=== PATIENT | female | born 1990 | race Caucasian/White ===

== ENCOUNTER 2016-04-23 14:30 | Emergency (ER) | payer OTHER ==
[2016-04-23] MEDS ORDERED: NORMAL SALINE 10 ML SYRINGE FLUSH IVP PRN (14:47)
[2016-04-23 15:10] LABS: BASOPHILS # (AUTO) 0.02 10*3/UL; BASOPHILS % (AUTO) 0.2 % (0-1); EOSINOPHILS % (AUTO) 1.4 % (0-8); HEMATOCRIT 39.3 % (37.0-47.0); HEMOGLOBIN 13.2 g/dL (12.0-16.0); IMM GRAN % (AUTO) 0.4 % (0-5); IMM GRAN# (AUTO) 0.04 10*3/UL; LYMPHOCYTES % (AUTO) 19.3 % (10-50); MEAN CORPUSCULAR HEMOGLOBIN 28.6 PG (27-31); MEAN CORPUSCULAR HGB CONC 33.6 g/dL (33-37); MEAN PLATELET VOLUME 10.4 FL (7.4-12.2); MONOCYTES # (AUTO) 0.67 10*3/UL (0.3-0.8); MONOCYTES % (AUTO) 6.8 % (5-15); NEUTROPHILS # (AUTO) 7.07 10*3/UL; NEUTROPHILS % (AUTO) 71.9 % (50-80); RDW COEFFICIENT OF VARIATION 13.9 % (11.5-14.5); RED BLOOD COUNT 4.61 10^6/uL (4.20-5.40); WHITE BLOOD COUNT 9.84 10^3/uL (4.8-10.8)
[2016-04-23 15:16] LABS: PLATELET MORPHOLOGY COMMENT NORMAL MORPHOLOGY (NORM)
[2016-04-23 15:18] LABS: AMYLASE 45 U/L (30-110); ASPARTATE AMINO TRANSFERASE 25 IU/L (8-39); BILIRUBIN,TOTAL 0.5 mg/dL (0.3-1.2); BLOOD UREA NITROGEN 8 mg/dL (7-22); BUN/CREATININE RATIO 13.33 (6-20); C-REACTIVE PROTEIN 0.6 mg/dL (0.0-0.9); CALCIUM 9.4 mg/dL (8.7-10.7); CHLORIDE 104 meq/L (98-112); CREATININE 0.6 mg/dL (0.50-1.20); EST GLOMERULAR FILTRATION > 60 (>60 ml/min/1.73m(2)); GLUCOSE 78 mg/dL (78-110); POTASSIUM 3.8 meq/L (3.8-5.2); SODIUM 136 meq/L (135-145); TOTAL PROTEIN 7.1 g/dL (6.1-8.0)
[2016-04-23 16:09] LABS: BILIRUBIN,URINE NEGATIVE (NEG); CLARITY,URINE CLEAR (CLEAR); GLUCOSE, URINE (UA) NEGATIVE (NEG); LEUKOCYTE ESTERASE ,URINE NEGATIVE (NEG); NITRATE,URINE NEGATIVE (NEG); OCCULT BLOOD,URINE NEGATIVE (NEG); PH,URINE 6.5 (5.0-8.5); PROTEIN,URINE NEGATIVE (NEG); UROBILINOGEN,URINE 0.2 EU/dL (0.2)
[2016-04-23 16:10] LABS: URINE SAMPLE TYPE CLEAN CATCH URINE
[2016-04-23 17:01] VITALS: RESP 18; TEMP 98.1
--- NOTE | 2016-04-23 17:15 | DI ---
HISTORY: Lower abdominal pain. TECHNIQUE: Sonographic images of the pelvis were obtained and submitted for interpretation. FINDINGS: There is a single live intrauterine with a heart rate measuring 160 beats per minute. The uterus is retroverted. The estimated gestational age is 11 weeks and 2 days based on a crown-rump length of 43 mm. IMPRESSION: 1. Single, live intrauterine of approximately 11 weeks, 2 days.
--- NOTE | 2016-04-23 22:41 | PDOC ---
Abdomen/Flank HPI - General Chief Complaint: Abdomen Pain Stated Complaint: ABDOMEN PAIN Date Seen by Provider: 04/23/16 Time Seen by Provider: 15:15 Source: POSITIVE: Patient Exam Limitations: POSITIVE: No limitations Nurse's Notes Reviewed & Considered: Yes - History of Present Illness Initial Comments: The patient is a 25-year-old female who is a at approximately 11 weeks gestational age who presents with abdominal pain. She states that approximately 2 hours ago she had onset of sharp lower abdominal pain. She does not have any associated nausea, vaginal bleeding or discharge, urinary symptoms or any other associated complaints. She is primarily concerned because she has had 3 previous miscarriages. She just recently moved to the area from [place]. She did have an ultrasound at approximately 7 weeks gestational age which by her report was normal. - Patient Home Medications Home Medications: Home Medications Pantoprazole Sodium [Protonix] 40 mg PO DAILY tab 04/27/14 Dimenhydrinate [Dramamine] 50 mg PO PRN PRN 05/05/14 Linaclotide [Linzess] 145 mcg PO DAILY #30 cap 05/17/14 Linaclotide [Linzess] 145 tab PO DAILY #30 cap 06/21/14 - Patient Allergies Allergies/Adverse Reactions: Allergies Allergy/AdvReac Type Severity Reaction Status Date / Time venom-honey bee Allergy Intermediate Anaphylaxis Verified 05/05/14 08:09 [bee venom (honey bee)] pickles Allergy Intermediate HIVES Uncoded 05/05/14 08:09 Past Medical History - heen Additional HEENT History: VOCAL CORD DYSFUNCTION/ TUBES IN BILAT EARS Cardiovascular History: Valvular Heart Disease, Other (please comment) Additional Cardiovasular History: LIAO SYNDROME Respiratory History: Denies History Additional Respiratory History: vocal cord dysfunction Gastrointestinal History: GERD Additional Gastrointestinal History: ABDOMINAL PAIN, CONSTIPATION Genitourinary History: Kidney Stones Additional Genitourinary History: ADRENAL MASS Endocrine History: Denies History Musculoskeletal History: Arthritis, Back Pain Prosthesis or Implant: Yes (r ankle) Neurological History: Migraines Additional Neurological History: vertigo when she wakes up Blood Disorders: Denies History Psychiatric History: Depression, Anixety Disorders, PTSD History of Sexually Transmitted Diseases: No Additional Female Reproductive History: MISCARRIAGE X3 LMP: 13-14 WKS AGO Obstetrical History: Other (please comment) Additional Obstetrical History: MISCARRIAGE X 3 AT 4-6 WEEKS : 4 Para: 0 Cancer History: Denies History In Past Year Been Physically Harmed or Verbally Threatened: No History of MDRO: Yes Other Type of MDRO: 1 YEAR Tobacco Use: Current Every Day Smoker Alcohol Use: Sober Substance Use Type: None Previous Surgical History: Yes Type / Date of Surgery: SHOULDER SCOPE/ LAP FOR OVARIAN CYSTS/ RIGHT ANKLE SX/ TUBES IN EARS Anesthesia Reactions: No Malignant Hyperthermia: No Significant Family History: Heart disease, Cancer, Hypertension Past Medical History Reviewed: Reviewed - No Changes ROS - Limitations ROS Limitations: No Limitations Constitution: DENIES: Chills, Fever Cardiovascular: REPORTS: Denies Cardiac Symptoms, Other (She does have a history of congenital heart defect) Respiratory: REPORTS: Denies Resp Symptoms Neurological: REPORTS: Denies Neuro Symptoms Gastrointestinal: REPORTS: Abdominal Pain. DENIES: Nausea, Vomitting, Diarrhea Endocrine: REPORTS: Denies Symptoms Musculoskeletal: REPORTS: Denies MS Symptoms Genitourinary: REPORTS: Denies Symptoms, Other (No vaginal bleeding or discharge). DENIES: Dysuria, Difficulty Urinating Eyes: REPORTS: Denies Symptoms ENT: REPORTS: Denies Symptoms Skin: DENIES: Rash Abdominal/Flank Pain PE - General Appearance General Appearance: POSITIVE: Alert, Cooperative, No Acute Distress - HEENT HEENT: POSITIVE: Head Inspection Nml, Eyes Inspection Nml, Ears Inspection Nml, Nose Inspection Nml - Neck Neck: POSITIVE: Normal Inspection - Respiratory Respiratory: POSITIVE: No Respiratory Distress, Breath Sounds Normal - Cardiovascular Cardiovascular: POSITIVE: Regular Rate and Rhythm, Heart Sounds Normal - Abdomen Abdomen: Soft: (All Quadrants), No Guarding: (All Quadrants), No Rebound: (All Quadrants), No Distention: (All Quadrants) Additional Abdominal Details: She does have some suprapubic abdominal tenderness without guarding or rebound tenderness - Skin Skin: POSITIVE: Intact, No Rash - Extremities Extremity: Normal ROM: (All Extremities), Normal Inspection: (All Extremities) Abdomen Progress - Results Reviewed by me Xrays/CTs/US Reviewed by me: Yes Discussed with Radiologist: Yes Radiology Findings: Ultrasound reveals intrauterine with viable heartbeat at 162, measuring 11 weeks 2 days. Lab Results Reviewed: Yes Lab Results:: Laboratory Results 04/23/16 04/23/16 Range/Units 14:47 14:52 WBC 9.84 (4.8-10.8) 10^3/uL RBC 4.61 (4.20-5.40) 10^6/uL Hgb 13.2 (12.0-16.0) g/dL Hct 39.3 (37.0-47.0) % MCV 85.2 (81-99) FL MCH 28.6 (27-31) PG MCHC 33.6 (33-37) g/dL RDW Std Deviation 43.1 (39-50) fL RDW Coeff of Anali 13.9 (11.5-14.5) % Plt Count 256 (140-350) 10*3/uL MPV 10.4 (7.4-12.2) FL Immature Gran % (Auto) 0.4 (0-5) % Neut % (Auto) 71.9 (50-80) % Lymph % (Auto) 19.3 (10-50) % Young % (Auto) 6.8 (5-15) % Eos % (Auto) 1.4 (0-8) % Baso % (Auto) 0.2 (0-1) % Immature Gran # (Auto) 0.04 10*3/UL Neut # (Auto) 7.07 10*3/UL Lymph # (Auto) 1.90 10*3/uL Young # (Auto) 0.67 (0.3-0.8) 10*3/UL Eos # (Auto) 0.14 10*3/UL Baso # (Auto) 0.02 10*3/UL WBC Morphology Comment Normal morphology (NORM) Plt Morphology Comment Normal morphology (NORM) RBC Morph Comment Normal morphology (NORM) Sodium 136 (135-145) meq/L Potassium 3.8 (3.8-5.2) meq/L Chloride 104 (98-112) meq/L Carbon Dioxide 23 (23-33) meq/L Anion Gap 9 (5-20) BUN 8 (7-22) mg/dL Creatinine 0.6 (0.50-1.20) mg/dL Estimated GFR > 60 (>60 ml/min/1.73m(2)) BUN/Creatinine Ratio 13.33 (6-20) Glucose 78 (78-110) mg/dL Calculated Osmolality 278.0 (267-292) mOsm/kg Calcium 9.4 (8.7-10.7) mg/dL Total Bilirubin 0.5 (0.3-1.2) mg/dL AST 25 (8-39) IU/L ALT 51 (9-52) IU/L Alkaline Phosphatase 63 (38-126) IU/L C-Reactive Protein 0.6 (0.0-0.9) mg/dL Total Protein 7.1 (6.1-8.0) g/dL Albumin 4.0 (3.5-4.8) g/dL Globulin 3.2 (2.50-4.10) g/dL Albumin/Globulin Ratio 1.20 L (1.3-2.0) mg/g Amylase 45 (30-110) U/L Lipase 90 (23-300) IU/L HCG, Quant 31892 mIU/ML Ur Collection Type Clean catch urine Urine Color Yellow Urine Clarity Clear (CLEAR) Urine pH 6.5 (5.0-8.5) Ur Specific Ray 1.020 (1.005-1.030) Urine Protein Negative (NEG) mg/dl Urine Glucose (UA) Negative (NEG) mg/dL Urine Ketones Negative (NEG) Urine Occult Blood Negative (NEG) Urine Nitrate Negative (NEG) Urine Bilirubin Negative (NEG) Urine Urobilinogen 0.2 (0.2) EU/dL Ur Leukocyte Esterase Negative (NEG) Ur Culture Indicated? Culture not set - Patient's Progress MDM / ED Course: Ultrasound, lab work and urinalysis are all unremarkable and the ultrasound does show a viable fetus with a heart rate in the 160s that is measuring 11 weeks consistent with dates. At this time the etiology of her pain is unclear however may represent some form of mechanical pain. She is advised to take Tylenol as needed for pain. She will return if worsening pain, fever, vomiting , vaginal bleeding or discharge, any worsening or change in symptoms. She has an appointment with Dr. Hoskins to establish OB care this which she was advised to keep. - Consult Counseled: POSITIVE: Patient, Family, RE: Lab Results, RE: Radiology Results, RE : DX, RE: Need for F/U Patient Care Time - Estimated PCT Patient Care Time (In Minutes): 25 Vital Signs - Recent Vital Signs Vital Signs: Vital Signs (Last 8 hours) Temp Pulse Resp BP Pulse Ox 04/23/16 16:10 102 H 121/90 98 04/23/16 15:15 98.1 F 113 H 18 129/81 100 - VS Reviewed Vital Signs Reviewed: Yes Discharge Clinical Impression: Abdominal pain, Abdominal pain in Condition: Stable Patient Instructions Given at Discharge: Acute Abdominal Pain (ED) Additional Instructions: The exact cause of the lower abdominal pain you are experiencing is unclear. The ultrasound revealed good heart tones in the baby and there did not appear to be any abnormality with the . Your blood work and urinalysis are also normal. It is possible that some of this pain may be to stretching related to the growing uterus. Recommend Tylenol as needed for pain which would be the safest thing to take if needed. Rest and push fluids. Return to the emergency room if increased abdominal pain, fevers or chills, vomiting, vaginal bleeding or discharge, any worsening or change in symptoms. Keep your appointment with Dr. Hoskins on . Follow Up With: NONE,NONE [Primary Care Provider] -
== END 2016-04-23 16:45 | disposition home or self-care (01) ==
LOC: ER 14:30
DX: O26.891 Other specified pregnancy related conditions, first trimester (principal); R10.32 Left lower quadrant pain; R10.31 Right lower quadrant pain
CPT/HCPCS: 76801; 80053; 81003; 82150; 83690; 84702; 85025; 86140; 99283

== ENCOUNTER → 2016-06-19 | Outpatient (CLI) | payer SELFPAY ==
[2016-06-19 16:23] LABS: BILIRUBIN,URINE NEGATIVE (NEG); GLUCOSE, URINE (UA) NEGATIVE (NEG); LEUKOCYTE ESTERASE ,URINE NEGATIVE (NEG); NITRATE,URINE NEGATIVE (NEG); OCCULT BLOOD,URINE NEGATIVE (NEG); PROTEIN,URINE NEGATIVE (NEG); UROBILINOGEN,URINE 0.2 mg/dL (0.2)
[2016-06-19 16:26] LABS: BACTERIA,URINE RARE; CLARITY,URINE SLIGHTLY CLOUDY (CLEAR); RBC,URINE 0 /hpf; SQUAMOUS EPITHELIAL CELL,UR RARE; URINE CRYSTALS MODERATE; URINE SAMPLE TYPE CLEAN CATCH URINE; WBC,URINE 0
== END ==
LOC: MOB LAB 14:17
PROVIDERS: ATTEND Family Medicine
DX: O26.892 Other specified pregnancy related conditions, second trimester (principal); R30.0 Dysuria; N89.8 Other specified noninflammatory disorders of vagina; Z3A.19 19 weeks gestation of pregnancy
CPT/HCPCS: 81001; 87491; 87591

== ENCOUNTER → 2016-06-25 | Outpatient (CLI) | payer OTHER ==
--- NOTE | 2016-06-25 09:20 | DI ---
OBSTETRICAL ULTRASOUND, 06/25/2016 7:54 AM: Clinical History: Antepartum screening. Previous Exam: 04/23/2016. ADJUSTED DATE FROM EARLY OBUS: 01/30/2016. There is a single live IUP currently in breech presentation. Amnionic fluid content is normal. activity is observed as follows: Cardiac, extremity, and respiratory. The placenta is anterior corpus and Grade 1. heart rate is 160 beats/minute and regular. There is a 3 vessel cord. The RVOT, L VOT and 4 chamber heart view are normal. The aortic arch and descending aorta are normal. Views of th e spine, face, and kidneys are unremarkable. On the views of the spine, there are images were the renal pelvis and possibly even the proximal ureter of one kidney are visualized in the coron al plane. Repeat scans of the kidney are recommended to be certain there is no true hydronephro sis. BPD, HC, AC, and FL measurements are 50 mm, 189 mm, 166 mm, and 34 mm, respectively. These measu rements correspond to EGA values of 21 weeks 1 day, 21 weeks 2 days, 21 weeks 5 days and 20 weeks 5 d ays, respectively. Composite EGA is 21 weeks 2 days. The US EDC is 11/03/2016. EDC by adjusted LMP is 11/05/2016. Readin. Single live fetus currently in breech presentation with normal amniotic fluid content. Placenta i s anterior corpus and grade 1. 2. The composite EGA is 21 weeks 2 days with an ultrasound EDC of 11/03/2016. 3. There are 2 images of the spine that include a kidney. This is probably the left kidney and the renal pelvis is prominent on the coronal plane of the kidney. Additionally, the proximal ureter may also be visualized and this is somewhat unusual. Repeat scans of the kidneys are recommende d to verify that there is no hydronephrosis, and the complete the anatomic survey.
== END ==
LOC: US 07:51
PROVIDERS: ATTEND Family Medicine
DX: Z36 Encounter for antenatal screening of mother (principal); Z3A.20 20 weeks gestation of pregnancy
CPT/HCPCS: 76805

== ENCOUNTER → 2016-07-17 | Outpatient (CLI) | payer OTHER ==
--- NOTE | 2016-07-18 11:28 | DI ---
US OB , LIMITED,07/17/2016 2:08 PM: Clinical History: Additional imaging of kidneys. Previous Exam: June 25, 2016 Findings: Multiple grayscale and color Doppler sonographic images are obtained through the pelvis focusing on t he kidneys, and demonstrate some continued hydronephrosis. There is massive right hydronephrosi s and moderate left hydronephrosis. Visualized portions of the urinary bladder are unremarkable. Detected Doppler heart tones measured 144 beats per minute. Impression: 1. Massive right-sided hydronephrosis with moderate left hydronephrosis. Consider maternal consultation as this may be a case where renal decompression could be c onsidered.
== END ==
LOC: US 14:05
PROVIDERS: ATTEND Family Medicine
DX: Z36 Encounter for antenatal screening of mother (principal); Z3A.23 23 weeks gestation of pregnancy
CPT/HCPCS: 76815

== ENCOUNTER 2016-07-31 14:00 | Outpatient (CLI) | payer OTHER ==
[2016-07-31] MEDS ORDERED: NORMAL SALINE 10 ML SYRINGE FLUSH IVP PRN (14:10)
[2016-07-31 15:12] LABS: BILIRUBIN,URINE NEGATIVE (NEG); COLOR,URINE YELLOW; GLUCOSE, URINE (UA) NEGATIVE (NEG); NITRATE,URINE NEGATIVE (NEG); OCCULT BLOOD,URINE NEGATIVE (NEG); PROTEIN,URINE NEGATIVE (NEG); UROBILINOGEN,URINE 0.2 EU/dL (0.2)
[2016-07-31 15:20] VITALS: TEMP 97.8
[2016-07-31 15:29] LABS: CLARITY,URINE CLEAR (CLEAR); URINE SAMPLE TYPE VOID
[2016-07-31 15:32] VITALS: RESP 20
== END 2016-07-31 16:32 | disposition home or self-care (01) ==
LOC: OBOP 14:00
PROVIDERS: ATTEND Family Medicine
DX: O26.892 Other specified pregnancy related conditions, second trimester (principal); R10.84 Generalized abdominal pain; R11.0 Nausea; R55 Syncope and collapse; Z3A.25 25 weeks gestation of pregnancy
CPT/HCPCS: 59025; 81003; 82731; 87480; 87510; 87660; 99211

== ENCOUNTER → 2016-08-14 | Outpatient (CLI) | payer OTHER ==
--- NOTE | 2016-08-14 14:35 | EKG ---
[address] [address] Measurements Intervals [place] Rate: 82 P: -26 VA: 118 QRS: 75 QRSD: 85 T: 32 QT: 346 QTc: 384 Interpretive Statements SINUS RHYTHM WITH SINUS ARRHYTHMIA WITH SHORT VA INTERVAL No previous ECG available for comparison Electronically Signed On 08-15-16 08:10:42 MDT by Anderson Khoury MD [email or web address]
== END ==
LOC: MOB EKG 14:17
PROVIDERS: ATTEND Specialist
DX: O99.412 Diseases of the circulatory system complicating pregnancy, second trimester (principal); I34.1 Nonrheumatic mitral (valve) prolapse; Z3A.27 27 weeks gestation of pregnancy
CPT/HCPCS: 84112; 93005; 93010

== ENCOUNTER → 2016-08-22 | Outpatient (CLI) | payer OTHER ==
[2016-08-22 09:26] LABS: HEMATOCRIT 41.2 % (37.0-47.0); HEMOGLOBIN 13.8 g/dL (12.0-16.0); MEAN CORPUSCULAR HEMOGLOBIN 30.1 PG (27-31); MEAN CORPUSCULAR HGB CONC 33.5 g/dL (33-37); MEAN PLATELET VOLUME 10.9 FL (7.4-12.2); RED BLOOD COUNT 4.58 10^6/uL (4.20-5.40)
== END ==
LOC: LAB 07:50
PROVIDERS: ATTEND Family Medicine
DX: Z36 Encounter for antenatal screening of mother (principal); Z3A.28 28 weeks gestation of pregnancy
CPT/HCPCS: 36415; 82950; 84443; 85027

== ENCOUNTER → 2016-08-24 | Outpatient (CLI) | payer OTHER | LOC: US 08:53 | PROVIDERS: ATTEND Specialist | DX: O99.413 Diseases of the circulatory system complicating pregnancy, third trimester (principal); Q24.9 Congenital malformation of heart, unspecified; Z3A.28 28 weeks gestation of pregnancy | CPT/HCPCS: 93306 ==

== ENCOUNTER → 2016-08-24 | Outpatient (CLI) | payer OTHER ==
--- NOTE | 2016-08-24 15:22 | DI ---
US OB , LIMITED,08/24/2016 8:56 AM: Clinical History: Size greater than dates. Previous Exam: July 17, 2016 Findings: Multiple grayscale and color Doppler sonographic images are obtained through the pelvis demonstrating a single live intrauterine gestation in vertex presentation. Amniotic fluid index is normal. (19.7 c m). Detected Doppler heart tones measured 152 beats per minute. Visualized portions of the placenta are within normal limits with an anterior placenta. With estimated gestational age was determined by a composite of biparietal diameter, head circumferen ce, abdominal circumference and femur length yielding an estimated gestational age by ultrasound of 3 1 weeks zero days. This is 10 days older than estimated weight by last menstrual period. Abdominal circumference measures at greater than the 98th percentile. Estimated weight is 1780 g (95th percentile). anatomic survey demonstrates stable hydronephrosis worse on the right than on the left. Impression: 1. Increased estimated gestational age by ultrasound. This is predominantly due to increased abdomina l circumference, which measures at the 98th percentile. This is due in part to severe bilateral hydro nephrosis. Consider maternal- medicine consultation.
== END ==
LOC: US 08:52
PROVIDERS: ATTEND Family Medicine
DX: O26.843 Uterine size-date discrepancy, third trimester (principal); O26.893 Other specified pregnancy related conditions, third trimester; N13.30 Unspecified hydronephrosis; Z3A.28 28 weeks gestation of pregnancy
CPT/HCPCS: 76815

== ENCOUNTER 2016-09-03 14:14 | Emergency (ER) | payer OTHER ==
[2016-09-03] MEDS ORDERED: diphenhydrAMINE 50 MG/1 ML VIAL IVP ONE (14:55)
[2016-09-03] MEDS ORDERED: NORMAL SALINE 10 ML SYRINGE FLUSH IVP PRN (14:55)
[2016-09-03] MEDS ORDERED: Metoclopramide Inj 10 MG/2 ML VIAL IVP ONE (14:55)
[2016-09-03] MEDS ORDERED: KETOROLAC 30 MG/1 ML VIAL IVP ONE (14:55)
[2016-09-03] MEDS ORDERED: Sodium Chloride 0.9% 1,000 ML PRIMARY IV ONE ×2 (14:55→15:50)
--- NOTE | 2016-09-03 22:19 | PDOC ---
Headache HPI - General Chief Complaint: Headache Stated Complaint: lost vision left eye now headache Date Seen by Provider: 09/03/16 Time Seen by Provider: 14:42 Source: POSITIVE: Patient Exam Limitations: POSITIVE: No limitations Nurse's Notes Reviewed & Considered: Yes - History of Present Illness Initial Comments: The patient is a 26-year-old female. Around 11:30 AM she was sitting attending a class in [place] when she states she experienced "loss of vision"in her left eye. Her vision, she states, return fairly quickly and became "fuzzy, with spots in my vision"and then her vision returned to normal. Following return of normal vision she developed a severe headache, mainly in the right frontal temp oral area. Patient is 30 weeks . Patient states she's not had any similar symptoms and no history of migraines. She does not work glasses or contact lenses. heart tones are normal and movement is good. Body Location Affected: REPORTS: Head, Other (Left eye as above) Timing: REPORTS: Abrupt, Changing Over Time (As above) Duration: 4-6 hours (Vision has returned to normal and following return of vision to normal she developed a headache as above; headache has been present for approximately 2 hours [employer]OUNT [employer]OR. Visual symptoms lasted less than an hour) Severity: Moderate Quality: REPORTS: "Pain" (Headache) Context: DENIES: CO Exposure, Tick Bite, Insect Bite, Recent Head Injury, Other Associated Symptoms: REPORTS: Problems with Vision (As above), Sensitivity to Light, Visual Disturb Preceding, [place] Preceding, Nausea. DENIES: Fever, Chills, Sweating, Typical of Prior Aura(s), Vomiting, Neck Pain, Stiffness, Speech Problems, Weakness, Trouble Walking, Tingling, Numbness, Dizziness, Lightheadedness, Other Any Prior Injuries Related to Current Complaint?: No - Patient Home Medications Home Medications: Home Medications Pnv#75/Iron Fum/FA/Om3/Dha/Epa [One A Day Dha Pack] 1 each PO QD #30 08/14/16 Sertraline HCl [Zoloft] 1 tab PO DAILY #30 tab 08/29/16 - Patient Allergies Allergies/Adverse Reactions: Allergies Allergy/AdvReac Type Severity Reaction Status Date / Time venom-honey bee Allergy Severe Anaphylaxis Verified 09/03/16 14:23 latex AdvReac Severe rash Verified 09/03/16 14:23 pickles Allergy Intermediate HIVES Uncoded 09/03/16 14:23 Past Medical History - heen Additional HEENT History: VOCAL CORD DYSFUNCTION/ TUBES IN BILAT EARS Cardiovascular History: Valvular Heart Disease, Other (please comment) Additional Cardiovasular History: LIAO SYNDROME Respiratory History: Denies History Additional Respiratory History: vocal cord dysfunction Gastrointestinal History: GERD Additional Gastrointestinal History: ABDOMINAL PAIN, CONSTIPATION Genitourinary History: Kidney Stones Additional Genitourinary History: ADRENAL MASS Endocrine History: Denies History Musculoskeletal History: Arthritis, Back Pain Prosthesis or Implant: Yes (r ankle) Neurological History: Migraines Additional Neurological History: vertigo when she wakes up Blood Disorders: Denies History Psychiatric History: Depression, Anxiety Disorders, PTSD History of Sexually Transmitted Diseases: No Female Reproductive History: Denies History LMP: 01/30/16 Obstetrical History: Denies History : 4 Para: 0 Cancer History: Denies History In Past Year Been Physically Harmed or Verbally Threatened: No History of MDRO: Yes Type of MDRO: MRSA Other Type of MDRO: 1 YEAR Tobacco Use: Current Every Day Smoker Alcohol Use: Sober Substance Use Type: None Previous Surgical History: Yes Type / Date of Surgery: SHOULDER SCOPE/ LAP FOR OVARIAN CYSTS/ RIGHT ANKLE SX x 7/ TUBES IN EARS-ear drum repaired alysa Anesthesia Reactions: No Malignant Hyperthermia: No Significant Family History: Heart disease, Cancer, Hypertension Past Medical History Reviewed: Reviewed - No Changes ROS - Limitations ROS Limitations: No Limitations Constitution: REPORTS: Denies Symptoms Cardiovascular: REPORTS: Denies Cardiac Symptoms Respiratory: REPORTS: Denies Resp Symptoms Neurological: REPORTS: Headache Gastrointestinal: REPORTS: Denies GI Symptoms Endocrine: REPORTS: Denies Symptoms Musculoskeletal: REPORTS: Denies MS Symptoms Genitourinary: REPORTS: Denies Symptoms Eyes: REPORTS: Vision Changes (As above, resolved about the time she developed her headache) ENT: REPORTS: Denies Symptoms Skin: REPORTS: Denies Skin Symptoms Lympathic: REPORTS: Denies Lympathic Symptoms Immunologic: POSITIVE: Denies Symptoms Psychiatric: POSITIVE: Denies Psych Symptoms Headache Exam - General Appearance General Appearance: POSITIVE: Alert, Cooperative, No Acute Distress, No Evidence of Trauma - HEENT Head / Face: POSITIVE: Atraumatic, Normal Inspection, No Facial Swelling, Other (Compression of head relieves headache) Eyes: POSITIVE: Inspection Normal, PERRL, EOM's Intact, Eyelids Uninjured, Conjunctivae Uninjured, No Nystagmus, No Globe Trauma, Sclera Normal, Normal Corneal Inspection, Normal Fundoscopic Exam, Ant. Chamber Nml Inspect., Posterior Segments Normal, Photophobia (Mild), Other (Visual acuity 20/20 left and 20/20 right) Ears: POSITIVE: Ears Normal Inspection, TM Normal Inspection, Auricle Normal, External Canal Normal Nose: POSITIVE: Inspection Normal, No Apparent Trauma, Nares Normal, No CSF Leak Oropharynx: POSITIVE: External Inspection Nml, Pharynx Inspect. Nml, Airway Intact, Voice Normal, Moist Mucous Membranes, No Oral Injury, Lips Normal, Gums Normal, No Drooling, No Thrush, Normal Gag Reflex Dental: POSITIVE: No Dental Injury - Pupil Size Pupil Size: 3 mm: Bilateral (PERRLA) - Neck Neck: POSITIVE: Normal Inspection, Supple - Respiratory / CVS Respiratory / CVS: POSITIVE: Chest Non-Tender, No Respiratory Distress, Heart Sounds Normal, Regular Rate/Rhythm, Breath Sounds Normal Peripheral Pulses: Radial (R): 2+, Radial (L): 2+ - Abdomen Additional Abdominal Details: Abdomen nontender. heart tones 130 and regular. Uterus gravid. - Skin Skin: POSITIVE: Intact, Normal Palpation - Extremities Extremity: Non-Tender: (All Extremities), Normal ROM: (All Extremities), Normal Inspection: (All Extremities) - Neuro / Psych Higher Functions: POSITIVE: Alert, Oriented x3, Normal Speech, Mood Appropriate , Affect Appropriate Cranial Nerves: POSITIVE: Normal As Tested, No Evidence of Acute CVA Cerebellar: POSITIVE: Normal As Tested Sensorimotor: POSITIVE: No Motor Deficits, No Sensory Deficits, Reflexes Normal Images - Head Head: 1 - Headache Headache Progress - Patient's Progress Pain Medication Addressed: POSITIVE: Yes (Patient given a liter of normal saline IV along with 30 mg of ketorolac, 10 mg of Reglan and 50 mg of diphenhydramine. Headache completely resolved and patient is asymptomatic on discharge.) School/Work Release Addressed: POSITIVE: Not Applicable Re-Examine Time:: 16:35 Re-Examine Comment: Headache completely resolved; patient asymptomatic on discharge Status: POSITIVE: Improved, Re-Examined, Pain Relieved - Consult Counseled: POSITIVE: Patient, RE: DX Patient Care Time - Estimated PCT Patient Care Time (In Minutes): 40 Vital Signs - Recent Vital Signs Vital Signs: Blood pressure 104/74, heart rate 104, respiratory rate 16, temperature 90.8F, SaO2 98% on room air. Visual acuity 20/20 left and 20/20 right. - VS Reviewed Vital Signs Reviewed: Yes Discharge Clinical Impression: Migraine Discharge Disposition: Discharged to Home Condition: Stable Patient Instructions Given at Discharge: Migraine Headache (ED) Additional Instructions: I believe you have a migraine headache. I'm glad you're feeling better. Rest today. Follow-up with your primary care provider. Return here anytime if condition worsens in any way whatsoever. Follow Up With: AN CARPIO [Primary Care Provider] - (Instructions as above. Follow-up with your primary provider. Return here anytime if condition worsens.)
== END 2016-09-03 17:14 | disposition home or self-care (01) ==
LOC: ER 14:14
DX: O26.893 Other specified pregnancy related conditions, third trimester (principal); G43.009 Migraine without aura, not intractable, without status migrainosus; Z3A.30 30 weeks gestation of pregnancy
CPT/HCPCS: 96361; 96374; 96375; 99282; 99283; J1200; J1885; J2765; J7030

== ENCOUNTER → 2016-10-02 | Outpatient (CLI) | payer OTHER ==
[2016-10-02 17:55] LABS: BLOOD UREA NITROGEN 8 mg/dL (7-22); BUN/CREATININE RATIO 13.33 (6-20); CALCIUM 9.1 mg/dL (8.7-10.7); EST GLOMERULAR FILTRATION > 60 (>60 ml/min/1.73m(2)); SERUM ALBUMIN 3.6 g/dL (3.5-4.8)
== END ==
LOC: MOB LAB 16:56
PROVIDERS: ATTEND Family Medicine
DX: O26.893 Other specified pregnancy related conditions, third trimester (principal); R10.11 Right upper quadrant pain; Z3A.35 35 weeks gestation of pregnancy
CPT/HCPCS: 36415; 80053

== ENCOUNTER → 2016-10-10 | Outpatient (CLI) | payer SELFPAY | LOC: MOB LAB 12:57 | PROVIDERS: ATTEND Family Medicine | DX: Z36 Encounter for antenatal screening of mother (principal); Z3A.36 36 weeks gestation of pregnancy | CPT/HCPCS: 87150 ==

== ENCOUNTER 2016-11-06 22:47 | Emergency (ER) | payer OTHER ==
--- NOTE | 2016-11-06 23:06 | PDOC ---
Nausea/Vomiting/Diarrhea HPI - General Chief Complaint: Nausea / Vomiting / Diarrhea Stated Complaint: NAUSEA X 4 DAYS, 8 DAYS Date Seen by Provider: 11/06/16 Time Seen by Provider: 23:05 Source: POSITIVE: Patient Exam Limitations: POSITIVE: No limitations Nurse's Notes Reviewed & Considered: Yes - History of Present Illness Initial Comments: Patient is a 26-year-old female who is sent from [facility] for further evaluation. Patient recently had given to a child he is and is status post tubal ligation. She had been seen in the with some nausea and was diagnosed with possible infection and started on Ceftin near. Patient reports she's had nausea without significant vomiting. She has also had diarrhea. She has had some transient abdominal pain. Diffuse. No specific exacerbating or relieving factors. Patient denies any current pain. She does have some pain in her tailbone that she's not sure how that became. She does complain of shortness of breath without chest pain. Patient does have edema that developed since her operation. Bilateral lower extremities. She reports her physician in [place] told her to make sure to walk and ambulate. - Patient Home Medications Home Medications: Home Medications Pnv#75/Iron Fum/FA/Om3/Dha/Epa [One A Day Dha Pack] 1 each PO QD #30 08/14/16 Sertraline HCl [Zoloft] 1 tab PO DAILY #30 tab 08/29/16 Butalb/Acetaminophen/Caffeine [Fioricet 50-300-40 Mg Capsule] 1 cap PO Q4H PRN # 20 cap 09/04/16 Propranolol HCl 10 mg PO TID #90 tab 09/12/16 Cefdinir [Omnicef] 300 mg PO BID 11/06/16 oxyCODONE/APAP 7.5/325 Tab [Percocet 7.5/325 Tab] 1 tab PO Q4H PRN 11/06/16 - Patient Allergies Allergies/Adverse Reactions: Allergies Allergy/AdvReac Type Severity Reaction Status Date / Time venom-honey bee Allergy Severe Anaphylaxis Verified 11/06/16 22:52 Iodinated Contrast- Oral and Allergy HIVES Verified 11/06/16 23:21 IV Dye latex AdvReac Severe rash Verified 11/06/16 22:52 pickles Allergy Intermediate HIVES Uncoded 11/06/16 22:52 Past Medical History - heen Additional HEENT History: VOCAL CORD DYSFUNCTION/ TUBES IN BILAT EARS Cardiovascular History: Valvular Heart Disease, Other (please comment) Additional Cardiovasular History: LIAO SYNDROME Respiratory History: Denies History Additional Respiratory History: vocal cord dysfunction Gastrointestinal History: GERD Additional Gastrointestinal History: ABDOMINAL PAIN, CONSTIPATION Genitourinary History: Kidney Stones Additional Genitourinary History: ADRENAL MASS Endocrine History: Denies History Musculoskeletal History: Arthritis, Back Pain Prosthesis or Implant: Yes (r ankle) Neurological History: Migraines Additional Neurological History: vertigo when she wakes up Blood Disorders: Denies History Psychiatric History: Depression, Anxiety Disorders, PTSD History of Sexually Transmitted Diseases: No Cancer History: Denies History History of MDRO: Yes Other Type of MDRO: 1 YEAR Alcohol Use: Sober Substance Use Type: None Previous Surgical History: Yes Type / Date of Surgery: SHOULDER SCOPE/ LAP FOR OVARIAN CYSTS/ RIGHT ANKLE SX x 7/ TUBES IN EARS-ear drum repaired alysa Anesthesia Reactions: No Malignant Hyperthermia: No Significant Family History: Heart disease, Cancer, Hypertension Past Medical History Reviewed: Reviewed - No Changes ROS - Limitations ROS Limitations: No Limitations Constitution: DENIES: Chills, Fever Cardiovascular: REPORTS: Edema. DENIES: Chest Pain Respiratory: REPORTS: Shortness Of Breath Neurological: REPORTS: Denies Neuro Symptoms Gastrointestinal: REPORTS: Abdominal Pain, Nausea, Diarrhea Endocrine: REPORTS: Denies Symptoms Musculoskeletal: REPORTS: Other (Tailbone pain) Genitourinary: REPORTS: Other (Improving vaginal bleeding small amount of lochia no purulent discharge) Eyes: REPORTS: Denies Symptoms ENT: REPORTS: Denies Symptoms Skin: REPORTS: Denies Skin Symptoms Lympathic: REPORTS: Denies Lympathic Symptoms Immunologic: POSITIVE: Denies Symptoms Psychiatric: POSITIVE: Denies Psych Symptoms Nausea/Vomiting/Diarrhea Exam - General Appearance General Appearance: POSITIVE: Alert, Cooperative, No Acute Distress - HEENT HEENT: POSITIVE: Head Inspection Nml, Eyes Inspection Nml - Neck Neck: POSITIVE: Supple, Normal Inspection, Non Tender - Respiratory Respiratory: POSITIVE: No Respiratory Distress - Cardiovascular Cardiovascular: POSITIVE: Regular Rate and Rhythm, Heart Sounds Normal - Chest Chest: POSITIVE: Non Tender - Abdomen Abdomen: Soft: (All Quadrants), Denies Tenderness: (All Quadrants), No Splenomegaly: (All Quadrants), No Hepatomegaly: (All Quadrants), No Guarding: ( All Quadrants), No Rebound: (All Quadrants) - Back Back: POSITIVE: Normal Inspection - Skin Skin: POSITIVE: Intact, Warm, Dry - Extremities Additional Extremities Details: 2+ edema in the lower extremities bilaterally - Neurological / Psychological Neurological: POSITIVE: Affect Apporpriate Reflexes: Patellar (R): 2+, Patellar (L): 2+ N/V/D Progress - Results Reviewed by me Lab Results:: Laboratory Results 11/06/16 Range/Units 23:20 NT-Pro-B Natriuret Pep 443 H (0-125) PG/ML Lipase 28 (23-300) IU/L - Patient's Progress MDM / ED Course: Elizabeth is a 26-year-old female who is sent to the emergency department for [place] for imaging. She was having nausea and diarrhea and the provider felt that she needed further evaluation for possible biliary problems. They've considered ultrasound and CT scan. Patient's vital signs here are unremarkable. There was some concern for possible preeclampsia but without evidence of hypertension I feel this is unlikely. Patient reports an allergy to contrast A subsequently will receive a noncontrast CT scan of her abdomen. I did review labs from last which demonstrate a white blood cell count of 10.3 thousand. Hemoglobin is 12.8 hematocrit 38.4 platelets were 250 Should panel with unremarkable findings other than alkaline phosphatase of 122 and albumin 2.8 her magnesium was within normal limits INR was 1.1 urinalysis was unremarkable BNP was mildly elevated. Chest x-ray demonstrates no evidence of volume overload or pulmonary edema to suggest cardiomyopathy as a cause patient's edema. She does not appear to have hellp syndrome. Patient did have a noncontrasted CT scan of her abdomen and pelvis which demonstrated postsurgical findings. There is also a cystic mass in the abdomen patient indicates that this is chronic and unchanged and her doctors is monitoring this. I find no evidence of acute medical emergency at this time. She does have edema which may be secondary to her and postsurgical state. Low suspicion for thrombosis given bilateral edema without unilateral findings. I did instruct patient to follow up closely with her RESIDENT SERVICE COORDINATOR and return for any worsening symptoms. Patient Care Time - Estimated PCT Patient Care Time (In Minutes): 30 Vital Signs - Recent Vital Signs Vital Signs: Vital Signs (Last 8 hours) Temp Pulse Resp BP Pulse Ox 11/06/16 23:00 97.2 F 79 20 120/65 95 - VS Reviewed Vital Signs Reviewed: Yes Discharge Clinical Impression: Nausea, Diarrhea Discharge Disposition: Discharged to Home Condition: Good Patient Instructions Given at Discharge: Acute Nausea and Vomiting (ED) Additional Instructions: Thank you for coming to the emergency department. Your laboratory studies were reviewed and were unremarkable. Her CT scan did demonstrate a cystic mass which indicates is old. Your gallbladder and appendix were normal. Please follow up closely with your primary care provider and return for any worsening symptoms. Use nausea medication as needed.
[2016-11-06 23:09] VITALS: RESP 20; TEMP 97.2
[2016-11-06 23:33] LABS: LIPASE 28 IU/L (23-300)
--- NOTE | 2016-11-06 23:46 | DI ---
HISTORY: Shortness of breath. FINDINGS/TECHNIQUE: PA and lateral views of the chest are submitted. The lungs are clear with no effusion, consolidation, or pneumothorax. The cardiomediastinal silhouette is within normal limits. Osseous structures are normal for age. IMPRESSION: 1. No radiographic evidence of acute cardiopulmonary pathology.
--- NOTE | 2016-11-06 23:53 | DI ---
HISTORY: Vomiting. Pain post operative. TECHNIQUE: Contiguous axial unenhanced images of the abdomen and pelvis were obtained from the lung bases through the ischial tuberosities. The images were then submitted for interpretation. FINDINGS: Ureters and bladder are unremarkable. No radiopaque renal or collecting system calculi. No evidence of obstructive uropathy. Further evaluation is significantly limited in the absence of oral and intravenous contrast. Normal CT appearance of the liver, gallbladder, spleen, right kidney, and right adrenal gland. There is a 4.1 x 5.0 cm cystic mass interposed between the tail of the pancreas, the left kidney, the spleen, and the left adrenal gland. There are postsurgical changes of the ventral abdominal/pelvic wall with rectus diastasis and a small air/fluid collection in the soft tissues of the left lower pelvis wall. This can be seen in the imme diate postoperative timeframe. Hollow viscus organs demonstrate normal course and caliber. The append ix is within normal limits. There is mild pelvic free fluid with no intraperitoneal free air. Vascular structures are intact. No abdominopelvic lymphadenopathy is present. The uterus is enlarged, a finding that can be seen in the state. The right adnexa is enlar ged. A dedicated pelvic ultrasound should be obtained if there is clinical concern for ovarian torsio n. The left adnexa is unremarkable. There is no inguinal or umbilical hernia. The lung bases are clear. Osseous structures are within normal limits for age. IMPRESSION: 1. There is a cystic mass interposed between the tail of the pancreas, the left kidney, the spleen, a nd the left adrenal gland. Dedicated contrast-enhanced imaging is recommended if no priors are availa ble for comparison. 2. There are postsurgical changes of the ventral abdominal/pelvic wall with rectus diastasis and a sm all air/fluid collection in the soft tissues of the left lower pelvis wall. This can be seen in the i mmediate postoperative timeframe. Hollow viscus organs demonstrate normal course and caliber. There i s mild pelvic free fluid with no intraperitoneal free air. 3. The uterus is enlarged, a finding that can be seen in the state. The right adnexa is en larged. A dedicated pelvic ultrasound should be obtained if there is clinical concern for ovarian tor laurie. The left adnexa is unremarkable.
== END 2016-11-07 00:33 | disposition home or self-care (01) ==
LOC: ER 22:47
DX: O90.89 Other complications of the puerperium, not elsewhere classified (principal); R11.0 Nausea; R19.7 Diarrhea, unspecified; R60.0 Localized edema; R06.02 Shortness of breath; R10.84 Generalized abdominal pain; M53.3 Sacrococcygeal disorders, not elsewhere classified
CPT/HCPCS: 71020; 74176; 83690; 83880; 99283

== ENCOUNTER → 2016-11-14 | Outpatient (CLI) | payer OTHER ==
--- NOTE | 2016-11-14 14:16 | DI ---
VENOUS DOPPLER ULTRASOUND OF THE right LOWER EXTREMITY, 11/14/2016 1:11 PM: Clinical History: Right lower extremity pain and swelling. Previous Exam: None. Technique: 2D real-time imaging is supplemented with color Doppler ultrasound. Compression and augmen tation maneuvers were performed. The long saphenous vein is normal. Reading: No evidence of deep venous thrombosis of the right lower extremity.
== END ==
LOC: US 13:06
PROVIDERS: ATTEND Nurse Practitioner Family
DX: M79.604 Pain in right leg (principal); M79.89 Other specified soft tissue disorders
CPT/HCPCS: 93971